=== PATIENT | female | born 1970 | race American Indian/Alaskan Native ===

== ENCOUNTER 2017-03-29 11:26 | Day surgery (SDC) | payer MEDICARE ==
[~2017-03-29 11:26] MED LIST: LACTATED RINGERS 1,000 ML IV SCH; PEPCID PO NR; VERSED IV NR
--- NOTE | 2017-03-29 12:35 | Anesthesia Consultation ---
Anesthesia Consult and Med Hx Date of service: 03/29/17 - Airway Anesthetic Teeth Evaluation: Good ROM Head & Neck: Adequate Mental/Hyoid Distance: Adequate Mallampati Class: Class II Intubation Access Assessment: Good - Pulmonary Exam CTA: Yes - Cardiac Exam Cardiac Exam: RRR - Pre-Operative Health Status ASA Pre-Surgery Classification: ASA3 Proposed Anesthetic Plan: General - Pulmonary Hx Smoking: Yes (FOR 2 YEARS, QUIT 24 YEARS AGO) - Central Nervous System Hx Psychiatric Problems: Yes - Hematic Hx Anemia: Yes - Other Systems Hx Alcohol Use: Yes (OCCAS) Hx Substance Use: No Hx Cancer: No - Additional Comments Anesthesia Medical History Comments: sjograns syndrome
--- NOTE | 2017-03-29 12:35 | Anesthesia Day of Surgery ---
Anesthesia Day of Surgery - Day of Surgery Patient Examined: Yes Patient H&P Reviewed: Yes Patient is NPO: Yes
[2017-03-29] MEDS ORDERED: ANCEF/STERILE WATER 2 GM/20 ML IV NR (13:00)
[2017-03-29] MEDS ORDERED: SUBLIMAZE ONE ×3 (14:18→16:03)
[2017-03-29] MEDS ORDERED: REGLAN ONE (14:18)
[2017-03-29] MEDS ORDERED: DIPRIVAN 10 MG/ML IV ONE (14:18)
[2017-03-29] MEDS ORDERED: ZOFRAN ONE (14:18)
[2017-03-29] MEDS ORDERED: XYLOCAINE MPF 2% ONE (14:18)
[2017-03-29] MEDS ORDERED: NACL 0.9% IR ONE (14:23)
[2017-03-29] MEDS ORDERED: NEO SYNEPHRINE ONE (14:44)
[2017-03-29] MEDS ORDERED: DILAUDID ONE ×3 (15:18→17:11)
[2017-03-29] MEDS ORDERED: APRESOLINE ONE (15:29)
[2017-03-29] MEDS ORDERED: BREVIBLOC IV ONE (15:29)
--- NOTE | 2017-03-29 17:04 | Discharge Summary ---
Short Stay Discharge Plan Activity: no restrictions Weight Bearing Status: Full Weight Bearing Diet: regular Wound: remove dressing (72hrs then may shower) Special Instructions: other ( care) Follow up with: MISSAEL GOMEZ MD [Primary Care Provider] - 6 Weeks
--- NOTE | 2017-03-29 17:05 | Short Stay Summary ---
Short Stay Documentation Date of service: 03/29/17 - Allergies and Medications Current Medications: Allergies No Known Allergies Allergy (Verified 03/26/17 12:41) Home Medications Medication Instructions Recorded Confirmed Last Taken Type Cephalexin [Cephalexin] 500 mg PO BID 03/26/17 03/29/17 03/28/17 20:30 History Oxycodone HCl/Acetaminophen 1 each PO Q6HR PRN 03/26/17 03/29/17 03/28/17 20:30 History [Percocet 10/325 mg] QUEtiapine [SEROquel] 25 mg PO QHS 03/26/17 03/29/17 03/28/17 20:30 History Zolpidem [Ambien] 10 mg PO QHS 03/26/17 03/29/17 03/28/17 20:30 History Active Medications Cefazolin Sodium (Ancef/Sterile Water 2 Gm/20 Ml) 2 gm IV PREOP NR Stop: 03/29/17 23:59 Famotidine (Pepcid) 20 mg PO PREOP NR Stop: 03/29/17 23:59 Last Admin: 03/29/17 12:49 Dose: 20 mg Lactated Ringer's (Lactated Ringers) 1,000 mls @ 100 mls/hr IV DIRECT LOLI Last Admin: 03/29/17 12:48 Dose: 100 mls/hr Midazolam HCl (Versed) 2 mg IV PREOP NR Stop: 03/29/17 23:59 Last Admin: 03/29/17 12:49 Dose: 2 mg - Brief post op/procedure progress note Date of procedure: 03/29/17 Pre-op diagnosis: Macromastia Post-op diagnosis: same Procedure: Zacarias. Breast Reduction Anesthesia: GETA Surgeon: BOBBI BUTTERFIELD JR Estimated blood loss: 50-100ml Specimen disposition: to lab Condition: stable - Disposition Condition at discharge: Good Disposition: DC-01 TO HOME OR SELFCARE Short Stay Discharge Plan Follow up with: MISSAEL GOMEZ MD [Primary Care Provider] - 6 Weeks
[2017-03-29] MEDS: DILAUDID IV PRN ×2 (17:09→17:26)
[2017-03-29] MEDS ORDERED: DILAUDID IV PRN (17:14)
[2017-03-29 20:18] VITALS: BP 155/68
--- NOTE | 2017-03-29 21:08 | Operative Report ---
PREOPERATIVE DIAGNOSIS: Macromastia. SECONDARY DIAGNOSES: Sjogren syndrome, status post neurologic event. POSTOPERATIVE DIAGNOSIS: Macromastia. PROCEDURE: Bilateral breast reduction with nipple amputation. SURGEON: Andi Goetz MD LACEMAKER: Iglesia Mota FINDINGS: A 640 gm removed from the right breast, 1900 gm removed from the left breast. DESCRIPTION OF PROCEDURE: The patient was brought to the operating room and placed on the table in supine position. Following administration of general anesthesia, bilateral breasts were prepped with Betadine solution and draped in usual sterile manner. A #10 blade scalpel was used to make a circumareolar skin incision followed by de-epithelization of inferior dermal pedicle. Modified Koch pattern skin markings were then incised with scalpel, deepened through subcutaneous fat and breast tissue using electrocautery. Skin flaps were raised in standard manner as was fashioning of an inferior central mound pedicle. Breast tissue was resected inclusive of the nipple areolar complexes bilaterally due to the excessive length of the pedicle. Hemostasis was controlled using electrocautery. Closure was performed over 10-mm Mariano drain using interrupted and running subcuticular 2-0 Monocryl sutures. Mastisol, Steri-Strips, and sterile dressings were applied. The patient tolerated the procedure well and returned to recovery room in stable condition. JOB# [id number] FTW/SHAJI
== END 2017-03-29 19:55 | disposition home or self-care (01) ==
LOC: OR 11:26
PROVIDERS: ATTEND Plastic Surgery
DX: N62 Hypertrophy of breast (principal); N64.4 Mastodynia; N64.81 Ptosis of breast; N60.12 Diffuse cystic mastopathy of left breast; N60.11 Diffuse cystic mastopathy of right breast; M35.00 Sjogren syndrome, unspecified; Z87.891 Personal history of nicotine dependence
CPT/HCPCS: 19318; 88305; J0360; J0690; J1170; J2250; J2370; J2405; J2704; J2765; J3010; J7120

== ENCOUNTER 2017-07-05 07:00 | Day surgery (SDC) | payer MEDICARE ==
--- NOTE | 2017-07-05 07:56 | Anesthesia Consultation ---
Anesthesia Consult and Med Hx Date of service: 07/05/17 - Airway Anesthetic Teeth Evaluation: Poor ROM Head & Neck: Adequate Mental/Hyoid Distance: Adequate Mallampati Class: Class II Intubation Access Assessment: Probably Good - Pulmonary Exam CTA: Yes - Cardiac Exam Cardiac Exam: RRR - Pre-Operative Health Status ASA Pre-Surgery Classification: ASA3 Proposed Anesthetic Plan: General - Pre-Anesthesia Comment Pre-Anesthesia Comments: Wheelchair assistance for distance. Sjorens Syndrome - Pulmonary Hx Asthma: Yes (seasonal, allergen triggers. occ inhaler use ) - Other Systems Hx Obesity: Yes
--- NOTE | 2017-07-05 07:57 | Anesthesia Day of Surgery ---
Anesthesia Day of Surgery - Day of Surgery Patient Examined: Yes Patient H&P Reviewed: Yes Patient is NPO: Yes
[2017-07-05] MEDS ORDERED: PEPCID IV NR (08:00)
[2017-07-05] MEDS ORDERED: NACL 0.9% 1000 ML 1,000 ML IV SCH (08:00)
--- NOTE | 2017-07-05 08:34 | Discharge Summary ---
Short Stay Discharge Plan Activity: other (avoid trauma to Nipples) Weight Bearing Status: Full Weight Bearing Diet: regular Wound: remove dressing (on Wednesday) Follow up with: MISSAEL GOMEZ MD [Primary Care Provider] - 6 Weeks WORK,BOBBI Miller JR, MD [Staff Physician] - 7 Days
--- NOTE | 2017-07-05 08:35 | Short Stay Summary ---
Short Stay Documentation Date of service: 07/05/17 - Allergies and Medications Current Medications: Allergies No Known Allergies Allergy (Verified 07/05/17 08:03) Home Medications Medication Instructions Recorded Confirmed Last Taken Type Cephalexin 500 mg PO BID 03/26/17 07/01/17 03/28/17 20:30 History Oxycodone HCl/Acetaminophen 1 each PO Q6HR PRN 03/26/17 07/01/17 03/28/17 20:30 History [Percocet 10/325 mg] QUEtiapine [SEROquel] 25 mg PO QHS 03/26/17 07/01/17 03/28/17 20:30 History Zolpidem [Ambien] 10 mg PO QHS 03/26/17 07/01/17 03/28/17 20:30 History Active Medications Cefazolin Sodium (Ancef/Sterile Water 2 Gm/20 Ml) 2 gm IV PREOP NR Famotidine (Pepcid) 20 mg IV PREOP NR Stop: 07/05/17 23:00 Sodium Chloride (Nacl 0.9% 1000 Ml) 1,000 mls @ 42 mls/hr IV DIRECT LOLI - Brief post op/procedure progress note Date of procedure: 07/05/17 Pre-op diagnosis: Zacarias. Absence of Nipples/Acquired Breast Deformity Post-op diagnosis: same Procedure: Zacarias. Nipple Reconstruction Anesthesia: GETA Surgeon: BOBBI BUTTERFIELD JR Estimated blood loss: minimal Pathology: none Condition: stable - Disposition Condition at discharge: Good Disposition: DC-01 TO HOME OR SELFCARE Short Stay Discharge Plan Follow up with: MISSAEL GOMEZ MD [Primary Care Provider] - 6 Weeks BOBBI BUTTERFIELD JR, MD [Staff Physician] - 7 Days
--- NOTE | 2017-07-05 08:36 | Short Stay Summary ---
Short Stay Documentation Date of service: 07/05/17 - Allergies and Medications Current Medications: Allergies No Known Allergies Allergy (Verified 07/05/17 08:03) Home Medications Medication Instructions Recorded Confirmed Last Taken Type Cephalexin 500 mg PO BID 03/26/17 07/01/17 03/28/17 20:30 History Oxycodone HCl/Acetaminophen 1 each PO Q6HR PRN 03/26/17 07/01/17 03/28/17 20:30 History [Percocet 10/325 mg] QUEtiapine [SEROquel] 25 mg PO QHS 03/26/17 07/01/17 03/28/17 20:30 History Zolpidem [Ambien] 10 mg PO QHS 03/26/17 07/01/17 03/28/17 20:30 History Active Medications Cefazolin Sodium (Ancef/Sterile Water 2 Gm/20 Ml) 2 gm IV PREOP NR Famotidine (Pepcid) 20 mg IV PREOP NR Stop: 07/05/17 23:00 Sodium Chloride (Nacl 0.9% 1000 Ml) 1,000 mls @ 42 mls/hr IV DIRECT LOLI - Brief post op/procedure progress note Date of procedure: 07/05/17 Pre-op diagnosis: Zacarias. Absemce of Nipples/Acquired Breast Deformity Post-op diagnosis: same Procedure: Zacarias. Nipple Reconstruction Anesthesia: GETA Surgeon: BOBBI BUTTERFIELD JR Estimated blood loss: minimal Pathology: none Specimen disposition: to lab Condition: stable - Disposition Condition at discharge: Good Disposition: DC- TO HOME OR SELFCARE Short Stay Discharge Plan Follow up with: MISSAEL GOMEZ MD [Primary Care Provider] - 6 Weeks BOBBI BUTTERFIELD JR, MD [Staff Physician] - 7 Days
[2017-07-05] MEDS ORDERED: DIPRIVAN 10 MG/ML IV ONE (08:38)
[2017-07-05] MEDS ORDERED: ANCEF/STERILE WATER 2 GM/20 ML IV NR (09:00)
[2017-07-05] MEDS ORDERED: XYLOCAINE MPF 2% ONE (10:24)
[2017-07-05] MEDS ORDERED: SUBLIMAZE ONE (10:25)
[2017-07-05] MEDS ORDERED: NACL 0.9% IR ONE (10:52)
[2017-07-05] MEDS ORDERED: DECADRON ONE (11:17)
[2017-07-05] MEDS ORDERED: ZOFRAN ONE (11:18)
[2017-07-05] MEDS ORDERED: DILAUDID IV PRN (11:29)
[2017-07-05] MEDS ORDERED: ZOFRAN IV PRN (11:29)
--- NOTE | 2017-07-05 11:29 | Post Anesthesia Evaluation ---
- Post Anesthesia Evaluation Patient Participated: Yes Airway Patent: Yes Stable Respiratory Function: Yes Nausea/Vomiting: No Temp > 96.8F: Yes Pain Manageable: Yes Adequeate Hydration: Yes Anesthesia Complications: No
[2017-07-05] MEDS ORDERED: DILAUDID ONE (11:35)
--- NOTE | 2017-07-05 12:15 | Operative Report ---
SERVICE: Plastic Surgery. PREOPERATIVE DIAGNOSES: 1. Bilateral absence of nipples. 2. Bilateral acquired breast deformity status post bilateral breast reduction with nipple amputation. SURGEON: Andi Goetz M.D. GROUP ROOMS COORDINATOR: Iglesia Mota CSA DESCRIPTION OF PROCEDURE: The patient was brought to the operating room and placed on the table in supine position. Following administration of general anesthesia, bilateral breasts were prepped with Betadine solution and draped in the usual sterile manner. A #11 blade scalpel was used to incise preoperative markings for a flag shaped flap, raised in standard manner, folded around itself to form a cylinder, secured in place with interrupted 3-0 Monocryl sutures. Donor site was closed with interrupted 2-0 Monocryl sutures. A dermal bridge was deepithelialized upon which the nipple rested and final skin closure was performed with a running subcuticular 3-0 Monocryl suture. Mastisol, Steri-Strips, and sterile dressings applied. The patient tolerated procedure well and returned to recovery room in stable condition. JOB# [id number] FTW/NTS
[2017-07-05 12:59] VITALS: BP 170/80
[2017-07-05] MEDS ORDERED: PERCOCET 5/325 PO SCH (13:00)
== END 2017-07-05 13:32 | disposition home or self-care (01) ==
LOC: OR 07:00
PROVIDERS: ATTEND Plastic Surgery
DX: N64.89 Other specified disorders of breast (principal); J45.909 Unspecified asthma, uncomplicated; M35.00 Sjogren syndrome, unspecified; F32.9 Major depressive disorder, single episode, unspecified; E66.9 Obesity, unspecified; Z91.048 Other nonmedicinal substance allergy status; Z68.41 Body mass index [BMI] 40.0-44.9, adult
CPT/HCPCS: 19350; 36415; 84703; J0690; J1100; J1170; J2405; J2704; J7030; J3010